=== PATIENT | male | born 1985 | race Native Hawaiian/Other Pacific Islander ===

== ENCOUNTER 2017-12-09 23:17 | Emergency (ER) | payer SELFPAY ==
[2017-12-10 01:05] LABS: Basophils # (Auto) 0.1 K/mm3 (0.0-0.1); Basophils % (Auto) 1.1 % (0.0-1.8); Eosinophils # (Auto) 0.1 K/mm3 (0.0-0.4); Eosinophils % (Auto) 1.8 % (0.0-4.3); Hematocrit 40.3 % (35.5-45.6); Hemoglobin 14.2 gm/dl (11.8-15.2); Lymphocytes # (Auto) 2.8 K/mm3 (1.2-5.4); Mean Corpuscular HGB Conc 35 % (32-34); Mean Corpuscular Hemoglobin 33 pg (28-32); Mean Corpuscular Volume 94 fl (84-94); Monocytes # (Auto) 0.3 K/mm3 (0.0-0.8); Monocytes % (Auto) 4.9 % (0.0-7.3); Platelet Count 272 K/mm3 (140-440); Red Blood Count 4.29 M/mm3 (3.65-5.03)
--- NOTE | 2017-12-10 01:11 | Emergency Department Report ---
ED Psych HPI - General Chief Complaint: Psych Stated Complaint: MH Time Seen by Provider: 12/10/17 01:08 Source: patient Mode of arrival: Ambulatory Limitations: No Limitations - History of Present Illness Initial Comments: Janay 32-year-old male presents emergency room with complaints of suicidal ideation with plan. Patient states he is going to jump off a roof, jump into traffic, jump off a bridge, or cut himself. Patient states he is having a lot of hallucinations and the voices are telling him to himself. Patient states he needs to and wants to act on these thoughts and voices. Patient denies chest pain. Patient denies shortness of breath. Patient denies any other physical complaints. 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 MD Complaint: suicidal ideation, feels depressed -: Sudden Associated Psychiatric Symptoms: depression, suicidal ideation, auditory hallucinations History of same: Yes Quality: constant Improves With: none Worsens With: none Context: recent drug abuse Associated Symptoms: denies: confusion, headache, shortness of breath, nausea, vomiting, syncope Treatments Prior to Arrival: placed on mental he If Self Harm: admits thoughts of, has plan - Related Data Home Medications Medication Instructions Recorded Confirmed Last Taken No Known Home Medications [No 12/10/17 12/10/17 Unknown Reported Home Medications] Allergies Allergy/AdvReac Type Severity Reaction Status Date / Time No Known Allergies Allergy Unverified 12/10/17 00:09 ED Review of Systems ROS: Stated complaint: MH Other details as noted in HPI Constitutional: denies: chills, fever Eyes: denies: eye pain, eye discharge, vision change ENT: denies: ear pain, throat pain Respiratory: denies: cough, shortness of breath, wheezing Cardiovascular: denies: chest pain, palpitations Endocrine: no symptoms reported Gastrointestinal: denies: abdominal pain, nausea, diarrhea Genitourinary: denies: urgency, dysuria Musculoskeletal: denies: back pain, joint swelling, arthralgia Skin: denies: rash, lesions Neurological: denies: headache, weakness, paresthesias Psychiatric: depression, auditory hallucinations, suicidal thoughts. denies: anxiety Hematological/Lymphatic: denies: easy bleeding, easy bruising ED Past Medical Hx - Past Medical History Previous Medical History?: Yes Hx Psychiatric Treatment: Yes Hx Asthma: Yes - Surgical History Past Surgical History?: No - Social History Smoking Status: Current Every Day Smoker Substance Use Type: Alcohol, Marijuana, Methamphetamines - Medications Home Medications: Home Medications Medication Instructions Recorded Confirmed Last Taken Type No Known Home Medications [No 12/10/17 12/10/17 Unknown History Reported Home Medications] ED Physical Exam - General Limitations: No Limitations General appearance: alert, in no apparent distress - Head Head exam: Present: atraumatic, normocephalic - Eye Eye exam: Present: normal appearance - ENT ENT exam: Present: mucous membranes moist - Neck Neck exam: Present: normal inspection - Respiratory Respiratory exam: Present: normal lung sounds bilaterally. Absent: respiratory distress - Cardiovascular Cardiovascular Exam: Present: regular rate, normal rhythm. Absent: systolic murmur, diastolic murmur, rubs, gallop - GI/Abdominal GI/Abdominal exam: Present: soft, normal bowel sounds - Rectal Rectal exam: Present: deferred - Extremities Exam Extremities exam: Present: normal inspection - Back Exam Back exam: Present: normal inspection - Neurological Exam Neurological exam: Present: alert, oriented X3 - Psychiatric Psychiatric exam: Present: suicidal ideation - Skin Skin exam: Present: warm, dry, intact, normal color. Absent: rash ED Course Vital Signs 12/09/17 12/10/17 23:58 01:29 Temperature 98.0 F 97.9 F Pulse Rate 73 64 Respiratory 16 18 Rate Blood Pressure 138/86 Blood Pressure 124/81 [Left] O2 Sat by Pulse 99 98 Oximetry - Reevaluation(s) Reevaluation #1: Patient was placed on a 1013 for suicidal ideations with the plan. Patient will remain on a 1013 until accepted into a psychiatric facility. 12/10/17 01:10 Mental health consultation 12/10/17 01:11 Reevaluation #2: Discussed plan of care patient. Patient agrees with plan of care discussed all results with patient. Patient will remain on 1013. Patient voiced understanding 12/10/17 01:59 ED Medical Decision Making - Lab Data Result diagrams: 12/10/17 00:22 12/10/17 00:22 - Medical Decision Making Patient is 32-year-old male presented to the Emergency room suicidal ideation with a plan. Patient was placed on 1013. Patient remain on 1013 and still accepted to appropriate psychiatric facility. Patient is medically cleared and stable medically. - Differential Diagnosis dep/ si . plan. anx. drug abuse. Critical care attestation.: If time is entered above; I have spent that time in minutes in the direct care of this critically ill patient, excluding procedure time. ED Disposition Clinical Impression: Suicidal ideation, Auditory hallucination, Drug abuse Disposition: [id number] PSY HOSP/PSY UNIT Is pt being admited?: No Does the pt Need Aspirin: No Condition: Stable Time of Disposition: 02:00
[2017-12-10 01:53] LABS: BUN/Creatinine Ratio 13; Blood Urea Nitrogen 10 mg/dL (9-20); Calcium 9.1 mg/dL (8.4-10.2); Hemolysis Index 6
[2017-12-10 04:10] LABS: Bilirubin,Urine NEG (Negative); Blood,Urine NEG (Negative); Color,Urine Yellow (Yellow); Mucus,Urine FEW /HPF; Protein,Urine <15 mg/dL mg/dL (Negative); WBC,Urine < 1.0 /HPF (0.0-6.0)
[2017-12-10 04:39] LABS: Amphetamine Screen,Urine PRESUMPTIVE NEGATIVE; Benzodiazepines Screen,Urine PRESUMPTIVE NEGATIVE; Cannabinoid Screen,Urine PRESUMPTIVE NEGATIVE; Cocaine Screen,Urine PRESUMPTIVE NEGATIVE; Methadone Screen,Urine PRESUMPTIVE NEGATIVE; Opiate Screen,Urine PRESUMPTIVE NEGATIVE
--- NOTE | 2017-12-10 12:27 | Consultation ---
History of Present Illness - Reason for Consult Consult date: 12/10/17 Reason for consult: Mental Health Evaluation Requesting physician: ANGELA JONES III - Chief Complaint Chief complaint: "I hear voices" - History of Present Psychiatric Illness 32-year-old male presents emergency room with complaints of suicidal ideation with plan. Today the patient is cooperative, but anxious during the assessment. He stated that he struggles with hearing voices and drug use. He stated that his drug of choice is "meth." He stated that he want help to get off drugs. He stated that the voices are telling him to kill himself. He stated that he hear voices even when not using "meth." He stated that he "hate" his life at this time. He denies HI's and VH's. He denies erratic sleep and a poor appetite. He denies alcohol consumption (etoh). He rate his anxiety 7/10, with 10 being the worse. Medications and Allergies Allergies Allergy/AdvReac Type Severity Reaction Status Date / Time No Known Allergies Allergy Unverified 12/10/17 00:09 Home Medications Medication Instructions Recorded Confirmed Last Taken Type No Known Home Medications [No 12/10/17 12/10/17 Unknown History Reported Home Medications] Past psychiatric history - Past Medical History Past Medical History: No medical history Past Surgical History: No surgical history - past Psychiatric treatment and history psychiatric treatment history: Hx of substance abuse. Denies a fam psy hx. - Social History Social history: Lives alone Mental Status Exam - Vital signs Last Vital Signs Temp 98.6 F 12/10/17 09:30 Pulse 69 12/10/17 09:30 Resp 18 12/10/17 09:30 BP 132/58 12/10/17 09:30 Pulse Ox 100 12/10/17 09:30 - Exam Narrative exam: MSE: Appearance: cooperative Behavior: regular eye contact Speech: regular rate and tone Mood: anxious Affect: congruent to mood Thought Process: circumstantial Thought Content: denies HI's and VH's, paranoia Motor Activity: ambulatory Cognition: A/O x 3 Insight: variable Judgment: poor Results Result Diagrams: 12/10/17 00:22 12/10/17 00:22 Abnormal lab results 12/10/17 12/10/17 12/10/17 Range/Units :18 00:22 00:22 MCH (28-32) pg MCHC (32-34) % RDW (13.2-15.2) % Lymph % (Auto) (13.4-35.0) % Glucose 110 H (75-100) mg/dL Salicylates < 0.3 L (2.8-20.0) mg/dL Acetaminophen < 5.0 L (10.0-30.0) ug/mL 12/10/17 Range/Units 00:22 MCH 33 H (28-32) pg MCHC 35 H (32-34) % RDW 13.0 L (13.2-15.2) % Lymph % (Auto) 41.0 H (13.4-35.0) % Glucose (75-100) mg/dL Salicylates (2.8-20.0) mg/dL Acetaminophen (10.0-30.0) ug/mL All other labs normal. 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 Hx of Substance Abuse per the patient. Today the patient is cooperative, but anxious during the assessment. UDS is negative. DDx: MDD with psychosis, R/O Bipolar DO with psychosis Recommendation/Plan: Continue 1013 with placement to inpatient psy services. Start Zyprexa 5 mg PO HS for mood/psychosis and Buspar 7.5 mg PO BID for anxiety. Discussed possible metabolic side effects of Zyprexa with the patient.
[2017-12-10] MEDS: BUSPAR PO SCH ×2 (13:30→22:45)
[2017-12-11] MEDS: BUSPAR PO SCH ×2 (15:17→21:53)
--- NOTE | 2017-12-11 16:19 | Progress Note ---
Subjective - Reason for Consult Consult date: 12/11/17 Reason for consult: Psychiatry Follow-up - Chief Complaint Chief complaint: "I may be getting better" 32-year-old male presents emergency room with complaints of suicidal ideation with plan. Today the patient is calm and cooperative during the assessment. He stated that the voices are decreasing at this time. He stated that he was able to rest last night. He denies SI/HI's and VH's. He denies any side effects of his medication. Mental Status Exam - Vital signs Last Vital Signs Temp 98.5 F 12/10/17 19:36 Pulse 60 12/10/17 19:36 Resp 14 12/10/17 19:36 BP 118/57 12/10/17 19:36 Pulse Ox 100 12/10/17 19:36 - Exam Narrative exam: MSE: Appearance: calm, cooperative Behavior: regular eye contact Speech: regular rate and tone Mood: "okay" Affect: congruent to mood Thought Process: circumstantial Thought Content: denies SI/HI's and VH's Motor Activity: ambulatory Cognition: A/O x 3 Insight: variable Judgment: variable Assessment and Plan Impression: Unspecified Mood DO with psy features. Unspecified Anxiety DO. Hx of Substance Abuse per the patient. Today the patient is calm and cooperative during the assessment. UDS is negative. DDx: MDD with psychosis, R/O Bipolar DO with psychosis Recommendation/Plan: Reevaluate 1013 in 24 hours to determine proper dispo. Continue Zyprexa 5 mg PO HS for mood/psychosis and Buspar 7.5 mg PO BID for anxiety. Discussed possible metabolic side effects of Zyprexa with the patient.
[2017-12-12] MEDS: BUSPAR PO SCH ×2 (11:00→22:19)
--- NOTE | 2017-12-12 19:10 | Progress Note ---
Subjective - Reason for Consult Consult date: 12/12/17 Reason for consult: follow up - Chief Complaint Chief complaint: "The voices are very far away" 32-year-old male presents emergency room with complaints of suicidal ideation with plan. Today the patient is calm and cooperative during the assessment. He stated that the voices are decreasing at this time. He denies any side effects of his medication. He talked about his situation. He states, "I'm a meth addict. " He states the voices "are bad when on day 2-3 of coming down." He talked about how his ex-girlfriend is on methamphetamine and he is giving her money for the . He states he is worried about how to pay rent. He states his boss will lower his pay if he does not show up. 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 Narrative exam: MSE: Appearance: calm, cooperative, in hospital gown, disheveled Behavior: regular eye contact Speech: regular rate and tone Mood: "worried" Affect: constricted Thought Process: circumstantial Thought Content: denies SI/HI. AH "are decreasing" Motor Activity: ambulatory Cognition: A/O x 3 Insight: variable Judgment: variable Assessment and Plan Impression: methamphetamine induced psychotic disorder. Hx of Substance Abuse per the patient. Today the patient is calm and cooperative during the assessment. UDS is negative but admits to using methamphetamine DDx: MDD with psychosis, R/O Bipolar DO with psychosis Recommendation/Plan: Reevaluate 1013 in 24 hours to determine proper dispo. Continue Zyprexa 5 mg PO HS for mood/psychosis and Buspar 7.5 mg PO BID for anxiety. Discussed possible metabolic side effects of Zyprexa with the patient. Mental Status Exam - Vital signs Last Vital Signs Temp 98.6 F 12/12/17 11:00 Pulse 61 12/12/17 11:00 Resp 18 12/12/17 11:00 BP 116/65 12/12/17 11:00 Pulse Ox 99 12/12/17 11:00
[2017-12-13] MEDS: BUSPAR PO SCH (10:00)
--- NOTE | 2017-12-13 20:04 | Progress Note ---
Subjective - Reason for Consult Consult date: 12/13/17 Reason for consult: follow up - Chief Complaint Chief complaint: "I'm doing fine." 32-year-old male presents emergency room with complaints of suicidal ideation with plan. Today the patient is calm and cooperative during the assessment. He stated that the voices have gone now. He denies any side effects of his medication. Yesterday, he voiced "I'm a meth addict." He states the voices "are bad when on day 2-3 of coming down." He states he is worried about how to pay rent and wants to get back to work. He asks if he can go home and follow up with outpatient services. He denies cravings to use methamphetamine. He denies suicidal or homicidal ideation. He listed his ex- as his support person to contact, Jenni Garciapp, . His ex is aware of his ER visit and complaints. She states as long as he has information on how to obtain outpatient treatment, she does not have any acute concerns. She states she will come get him if needed. Narrative exam: MSE: Appearance: calm, cooperative, in hospital gown Behavior: regular eye contact Speech: regular rate and tone Mood: "good" Affect: appropriate Thought Process: linear/logical Thought Content: denies SI/HI. denies AH Motor Activity: ambulatory Cognition: A/O x 3 Insight: fair Judgment: fair Assessment and Plan Impression: methamphetamine induced psychotic disorder. Hx of Substance Abuse per the patient. Today the patient is calm and cooperative during the assessment. UDS is negative but admits to using methamphetamine DDx: MDD with psychosis, R/O Bipolar DO with psychosis Recommendation/Plan: Rescind 1013. There are no acute safety concerns. He has maintained denial of suicidal ideation and is exhibiting no acute psychotic symptoms. He is recommended to seek outpatient mental health care at [facility]. He was provided with the information to [place] [facility]. He is recommended to continue Zyprexa 10 mg PO for mood and Celexa 20 mg PO daily for depression. Mental Status Exam - Vital signs Last Vital Signs Temp 98.6 F 12/13/17 10:00 Pulse 70 12/13/17 10:00 Resp 18 12/13/17 10:00 BP 100/60 12/13/17 10:00 Pulse Ox 99 12/13/17 10:00
[2017-12-13 21:21] VITALS: BP 120/82
== END 2017-12-13 22:02 ==
LOC: ED 23:17 → EEVIPCON 23:17 → ED 12-13 22:02
DX: F15.159 Other stimulant abuse with stimulant-induced psychotic disorder, unspecified (principal); J45.909 Unspecified asthma, uncomplicated; F12.10 Cannabis abuse, uncomplicated; F17.200 Nicotine dependence, unspecified, uncomplicated; F15.10 Other stimulant abuse, uncomplicated
CPT/HCPCS: 36415; 80048; 80307; 81001; 85025; 99284; G0480; 80320